=== PATIENT | male | born 1990 | race Caucasian/White ===

== ENCOUNTER 2019-06-10 23:05 | Emergency (ER) | payer MEDICAID ==
[~2019-06-10] VITALS: Ht 182.9 cm; Wt 73.9 kg
[~2019-06-10 23:05] MED LIST: NORPTMEDS CO
[2019-06-10 23:47] VITALS: BP 128/86
[2019-06-11] MEDS ORDERED: TETANUS-DIPTH-ACEL PERTUSSIS 0.5ML SYRG IM ONE (01:45)
== END 2019-06-11 03:06 | disposition home or self-care (01) ==
LOC: ER 23:07
DX: S62.622A Displaced fracture of middle phalanx of right middle finger, initial encounter for closed fracture (principal); W23.0XXA Caught, crushed, jammed, or pinched between moving objects, initial encounter; Y93.89 Activity, other specified; Y92.89 Other specified places as the place of occurrence of the external cause; Y99.8 Other external cause status
CPT/HCPCS: 12002; 29130; 73140; 90471; 90715